=== PATIENT | male | born 1980 | race Caucasian/White ===

== ENCOUNTER 2017-09-14 15:00 | Emergency (ER) | payer BC, OTHER ==
[~2017-09-14] VITALS: Ht 167.6 cm; Wt 86.2 kg
[2017-09-14] MEDS ORDERED: KETOROLAC TROMETH 60MG/2ML VIAL IM ONE (17:00)
[2017-09-14 17:15] VITALS: BP 133/75
== END 2017-09-14 17:43 | disposition home or self-care (01) ==
LOC: ER 15:00
DX: G89.29 Other chronic pain (principal); M54.5 Low back pain; Z90.89 Acquired absence of other organs
CPT/HCPCS: 72110; 96372; 99284; J1885